=== PATIENT | male | born 1985 | race Caucasian/White ===

== ENCOUNTER 2025-04-29 08:45 | Emergency (ER) | payer OTHER ==
[2025-04-29] MEDS: Acetaminophen 500 MG Tab PO ONE (09:24)
[2025-04-29] MEDS: Bacitracin Oint 1 GM U/D Packet TOP ONE (13:00)
[2025-04-29] MEDS: Diphtheria,Pertussis(Acell),Tetanus Vaccine 0.5 ML Syringe IM ONE (13:00)
[2025-04-29] MEDS: Lidocaine 1% with EPINEPHrine 1:100,000 20 ML MDV INJECT ONE (13:00)
== END 2025-04-29 13:01 | disposition home or self-care (01) ==
LOC: EDBD 08:45 → MERGE 08:45 → JP.ED 08:45
DX: S61.011A Laceration without foreign body of right thumb without damage to nail, initial encounter (principal); S60.412A Abrasion of right middle finger, initial encounter; S60.414A Abrasion of right ring finger, initial encounter; Z23 Encounter for immunization; W26.8XXA Contact with other sharp object(s), not elsewhere classified, initial encounter; Y92.89 Other specified places as the place of occurrence of the external cause; Y99.0 Civilian activity done for income or pay
CPT/HCPCS: 12001; 73130; 90471; 99283; A9270; J2004